=== PATIENT | male | born 1945 | race Hispanic/Latino ===

== ENCOUNTER 2018-10-09 10:22 | Observation (INO) | payer OTHER | END 2018-10-11 13:27 | disposition home or self-care (01) | LOC: EDH 10:22 → EDHIP 13:19 → 4CH 16:29 ==

== ENCOUNTER → 2018-11-04 | Outpatient (CLI) | payer OTHER ==
[~2018-11-04] MED LIST: BENZ0.5T43 PO; DOCU100C33 PO; FLUO40CA7 PO; TAMS-1 PO; VALB40CA PO
[2018-11-04 11:15] LABS: BASOPHILS % (AUTO) 0.2 % (0.0-5.0); EOSINOPHILS % (AUTO) 2.4 % (0.0-8.0); HEMATOCRIT 42.4 % (42-54); MEAN CORPUSCULAR HEMOGLOBIN 29.4 pg (27.0-33.0); MEAN CORPUSCULAR HGB CONC 33.3 g/dL (32.0-36.0); MEAN CORPUSCULAR VOLUME 88.2 fL (79-99); MONOCYTES % (AUTO) 6.7 % (3.0-13.0); NEUTROPHILS % (AUTO) 57.7 % (40.0-77.0); PLATELET COUNT (AUTO) 275 K/uL (130-400); RED CELL DISTRIBUTION WIDTH 14.1 % (11.0-15.5)
[2018-11-04 11:24] LABS: CREATININE 1.5 mg/dL (0.5-1.5); POTASSIUM 4.7 mmol/L (3.5-5.1)
== END | disposition home or self-care (01) ==
LOC: LAB 10:22
PROVIDERS: ATTEND Urology
DX: R31.29 Other microscopic hematuria (principal)
CPT/HCPCS: 36415; 80048; 85025

== ENCOUNTER → 2018-11-12 | Outpatient (CLI) | payer OTHER ==
[~2018-11-12] MED LIST changes: +IOHEXOL 350 MG/ML 100ML INFUS..BTL IV ONE
== END | disposition home or self-care (01) ==
LOC: RAH 10:00
PROVIDERS: ATTEND Urology
DX: N26.1 Atrophy of kidney (terminal) (principal); N21.0 Calculus in bladder; J98.11 Atelectasis; M47.815 Spondylosis without myelopathy or radiculopathy, thoracolumbar region; I72.3 Aneurysm of iliac artery
CPT/HCPCS: 74178; Q9967